=== PATIENT | male | born 1960 | race Hispanic/Latino ===

== ENCOUNTER → 2018-07-23 | Outpatient (CLI) | payer BC ==
[2018-07-23 15:31] LABS: BASOPHILS % (AUTO) 0.9 % (0.0-5.0); EOSINOPHILS % (AUTO) 10.5 % (0.0-8.0); HEMATOCRIT 42.1 % (42-54); LYMPHOCYTES % (AUTO) 28.6 % (21.0-51.0); MEAN CORPUSCULAR HEMOGLOBIN 32.8 pg (27.0-33.0); MEAN CORPUSCULAR HGB CONC 34.5 g/dL (32.0-36.0); PLATELET COUNT (AUTO) 249 K/uL (130-400); RED BLOOD CELL COUNT(AUTO) 4.44 MIL/uL (4.50-6.20); RED CELL DISTRIBUTION WIDTH 13.9 % (11.0-15.5); WHITE BLOOD COUNT (AUTO) 6.9 K/uL (4.8-10.8)
[2018-07-23 15:49] LABS: CREATININE 0.9 mg/dL (0.5-1.5); POTASSIUM 4.1 mmol/L (3.5-5.1)
== END | disposition home or self-care (01) ==
LOC: LAB 14:32
PROVIDERS: ATTEND Urology
DX: R31.29 Other microscopic hematuria (principal)
CPT/HCPCS: 36415; 80048; 85025

== ENCOUNTER → 2018-08-06 | Outpatient (CLI) | payer BC ==
[~2018-08-06] MED LIST: IOPAMIDOL-370 100 ML VIAL IV ONE
== END | disposition home or self-care (01) ==
LOC: OIH 07:54
PROVIDERS: ATTEND Urology
DX: K40.20 Bilateral inguinal hernia, without obstruction or gangrene, not specified as recurrent (principal); N40.0 Benign prostatic hyperplasia without lower urinary tract symptoms
CPT/HCPCS: 74178; Q9967